=== PATIENT | male | born 1990 | race Two or more races ===

== ENCOUNTER 2023-06-02 00:35 | Emergency (ER) | payer OTHER ==
[~2023-06-02] VITALS: Ht 182.9 cm; Wt 102.0 kg
[2023-06-02 00:58] VITALS: BP 156/88; PULSE 110; RESP 20; TEMP 99.3; O2SAT 98
[2023-06-02 02:27] LABS: Hepatitis B Surface Antibody Positive (Negative)
[2023-06-02 02:39] LABS: Hepatitis B Surface Antigen Negative (Negative)
[2023-06-02] MEDS ORDERED: RALT400T PO (03:27)
[2023-06-02] MEDS ORDERED: EMTRTAB7 PO (03:27)
[2023-06-02] MEDS ORDERED: CIPR0.3S4 OP (03:37)
== END 2023-06-02 03:37 | disposition home or self-care (01) ==
LOC: ER 00:43
DX: Z77.21 Contact with and (suspected) exposure to potentially hazardous body fluids (principal); F17.210 Nicotine dependence, cigarettes, uncomplicated; Z79.01 Long term (current) use of anticoagulants; Z20.6 Contact with and (suspected) exposure to human immunodeficiency virus [HIV]
CPT/HCPCS: 36415; 86703; 86706; 86803; 87340; 99283; J7030